=== PATIENT | female | born 1990 | race Caucasian/White ===

== ENCOUNTER → 2016-08-28 | Outpatient (CLI) | payer MEDICAID ==
[~2016-08-28] MED LIST: APAP/OXYCODONE1 TA1 PO; AUGMENTIN1 TA2 PO; CIPRO 500MG TA500 MG PO; ENDOMETRIN100 MG VG; HYDROCODONE-APA1 TA1 PO; KEFLEX 500MG.500 MG PO; LISINOPRIL 10MG10 MG PO; LOVENOX40 MG/0.4 SC; MACROBID 100MG100 MG PO; MEDROL 4MG. DOSE4 MG PO; MIRALAX(PO17 GM/1 PA PO; MOTRIN600 M1 PO; NOMEDS *; NOMEDS XX; NORCO 325 MG-51 TAB PO; ONDANSETRON HYDR4 MG PO; PHENERGAN25 M2 RC; PHENERGAN25 M3 PO; PREDNISONE 20MG20 MG PO; PRENATAL PLUS1 TA1 PO; SULFAMETHOXAZOL1 TA6 PO; ULTRAM 50 MG TA50 MG PO; VICODIN 5/500 T1 TAB PO; VOLTAREN75 MG PO; ZOFRAN4 MG PO
--- NOTE | 2016-08-29 07:23 | RADIOLOGY REPORT PS360 ---
PROCEDURE: 2-D M-mode and color Doppler study INDICATIONS FOR THE TEST: Chest pain COPD Heart Murmur Tobacco Smoking Palpitations Fatigue Syncope Edema Hypertension Diabetes Mellitus Rheumatic Fever SOBXDOEXObesityXHyperlipidemia Family History HD Additional History PATIENT INFORMATION HEIGHT: 63 WEIGHT:218 GENDER: Female B/P:130/98 2-D/M-MODE INTERPRETATION: 2-D MEASUREMENTS OBSERVED VALUES IN CMS Right Ventricular Dimension (RVDd) 2.1 Interventricular Septum (Thickness)(IVsd) .9 Left Ventricular Internal Dimensions(LVIDd) 4.9 Left Ventricular Posterior Wall (Thickness)(LVPWd) .9 Aortic Root 3.3 Aortic Cusp Separation 1.7 Left Atrial Dimensions (LAD) 2.7 2D 1. The left atrium is normal size, left ventricle is normal size, there is no concentric left ventricular hypertrophy, visually estimated ejection fraction 55% with no obvious regional wall motion abnormality. 2. The right atrium and right ventricle are normal size and contractility. 3. The aortic, mitral and tricuspid valve is structurally normal. 4. The pulmonic valve is not well visualized. 5. No significant pericardial effusion noted. DOPPLER INTERROGATION: Doppler interrogation of the aortic mitral and tricuspid valvular presence of trace mitral and tricuspid regurgitation, tricuspid regurgitant jet velocity insufficient for calculation of the right ventricular systolic pressure. CONCLUSION: 1. Normal left ventricular size, preserved left ventricular systolic function, visually estimated ejection fraction 55% with no obvious regional wall motion abnormality. 2. Trace mitral and tricuspid regurgitation. 3. No significant pericardial effusion noted.
== END ==
LOC: RT 08:36
DX: R06.00 Dyspnea, unspecified (principal); R06.83 Snoring; G47.33 Obstructive sleep apnea (adult) (pediatric); G47.10 Hypersomnia, unspecified